=== PATIENT | female | born 1960 | race African-American/Black ===

== ENCOUNTER 2019-08-08 05:50 | Inpatient (IN) | payer OTHER ==
--- NOTE | 2019-08-07 11:59 | HP ---
HISTORY OF PRESENT ILLNESS: This is a 59 year old female, who reports to our office for evaluation of low back pain and right greater than left leg pain. The patient describes pain that radiates down along the S1 dermatome on the right and on the left, pain at the left greater trochanteric bursa down to her knee. The patient describes pain worse with standing or walking. She cannot walk further than a block without needing to sit or lean over. The patient states that she has recently noticed her legs going numb if she stands while cooking. Sitting will relieve the pain and numbness. At times, she gets pain when trying to sleep. She states that it is difficult to do all of her daily activities due to this pain. REVIEW OF SYSTEMS: A 10-point review of systems has been completed and is negative other than stated in the above HPI. PAST MEDICAL HISTORY: Anxiety, history of tumor, depression, headaches. SURGICAL HISTORY: Lumbar back surgery x2. Anal surgery for cancer. FAMILY HISTORY: Father is , diagnosed with heart disease. Mother is , diagnosed with diabetes and stroke. SOCIAL HISTORY: The patient is a nonsmoker. MEDICATIONS: Effexor, naproxen, metformin, venlafaxine, omeprazole, and trazodone. ALLERGIES: NO KNOWN DRUG ALLERGIES. PHYSICAL EXAMINATION: CONSTITUTIONAL: Well appearing, well nourished, alert. RESPIRATIONS: Normal work of breathing on room air. Symmetric chest rise. NEUROLOGIC: Awake, alert, oriented x3. Speech is spontaneous and fluent. Normal fund of knowledge. Cranial nerves are grossly intact. Lower extremities; 5/5 bilateral strength in hip flexion, knee flexion, knee extension, dorsiflexion, plantar flexion, EHL. No radiculopathy. Negative single leg raise bilaterally. Hip rotation normal bilaterally. Tender to palpate lumbar spine. Deep tendon reflexes 2+ patellar bilaterally, 2+ Achilles bilaterally. Negative Babinski. No clonus. Sensory, light touch intact. Gait and station, sit to stand normal. Normal gait. IMAGING: MRI of lumbar spine, prior surgery at L4, L5, S1. There is restenosis at L4-L5. There is listhesis at L5-S1 with motion on flexion-extension x-rays. Dr. Murray has offered surgery for neurogenic claudication and spondylolisthesis of the lumbar region. He has offered a redo-laminectomy with an L4-L5 TLIF. INFORMED CONSENT: We discussed indications, risks, benefits, alternatives, expected results from surgery. The risks discussed include but were not limited to, bleeding, infection, CSF leak, nerve damage, weakness, incontinence, cauda equina injury, arachnoiditis, paralysis, ventilator dependence, wheelchair dependence, loss of vision, cardiopulmonary complications of anesthesia, or . Long-term complications discussed include, but were not limited to spinal instability and the need for further surgery. The patient states she is willing to proceed. Job ID: [id number]
[2019-08-07 15:07] VITALS: BMI 33.6
[2019-08-08] MEDS ORDERED: Sodium Chloride 0.9% 30 ML ONE (06:12)
[2019-08-08] MEDS ORDERED: Bupivacaine HCl 0.5%/Epinephrine 1:200,000/PF 30 ml Vial ONE (06:12)
[2019-08-08] MEDS ORDERED: Thrombin 5000 UNITS/5 ML VIAL ONE (06:12)
[2019-08-08 06:26] LABS: Hemoglobin 10.8 g/dL (12.0-16.0); Mean Corpuscular HGB CONC 33.3 g/dL (32.0-36.0); Mean Corpuscular Hemoglobin 33.6 pg (27.0-31.0); Mean Platelet Volume 6.4 fL (7.4-10.4); Platelet Count 264 thou/uL (130-400); RBC Distribution Width 12.1 % (11.5-14.5); Red Blood Cell (RBC) Count 3.22 mill/uL (4.20-5.40); White Blood Cell (WBC) Count 6.3 thou/uL (4.8-10.8)
[2019-08-08 06:32] LABS: PTT 26.7 SEC (22.9-36.1); Prothrombin Time 13.3 SEC (12.0-14.7)
[2019-08-08] MEDS ORDERED: Fentanyl 250 MCG/5 ML VIAL ONE (06:37)
[2019-08-08 06:58] LABS: Anion Gap 14 mmol/L (10-20); BUN (Urea Nitrogen) 19 mg/dL (9.8-20.1); Calc. Creatinine Clearance 43 mL/min (70-130); Calcium 9.6 mg/dL (7.8-10.44); Carbon Dioxide 24 mmol/L (22-29); Chloride 105 mmol/L (98-107); Estimated GFR-MDRD 30; Glucose 91 mg/dL (70-105); Potassium 4.1 mmol/L (3.5-5.1); Sodium 139 mmol/L (136-145)
[2019-08-08] MEDS ORDERED: Ketamine 50 MG/ML (10ML VIAL) ONE (07:05)
[2019-08-08] MEDS ORDERED: Phenylephrine HCL 10 MG/ML VIAL ONE ×2 (08:06→11:31)
[2019-08-08] MEDS ORDERED: Midazolam HCl 2 mg/2 ml Vial ONE ×2 (08:12→11:32)
[2019-08-08] MEDS ORDERED: Ondansetron PF 4 MG/2 ML Vial ONE ×3 (11:33→19:27)
[2019-08-08] MEDS ORDERED: Acetaminophen 325 MG TAB PO PRN (14:21)
[2019-08-08] MEDS ORDERED: Promethazine 25 MG TAB PO PRN (14:21)
[2019-08-08] MEDS ORDERED: Mag-Al 1200 mg/1200 mg/30 ML UDCUP PO PRN (14:21)
[2019-08-08] MEDS ORDERED: Ondansetron PF 4 MG/2 ML Vial IVP PRN (14:21)
[2019-08-08] MEDS ORDERED: diphenhydrAMINE 25 MG CAP PO PRN (14:21)
[2019-08-08] MEDS ORDERED: Morphine 2 MG/ML SYRINGE SLOW IVP PRN (14:21)
[2019-08-08] MEDS ORDERED: diphenhydrAMINE 50 MG/ML VIAL IVP PRN (14:21)
[2019-08-08] MEDS ORDERED: tiZANidine HCl 4 MG TAB PO PRN (14:21)
[2019-08-08] MEDS ORDERED: Milk Of Magnesia 30 ML UDCUP PO PRN (14:21)
[2019-08-08] MEDS ORDERED: Promethazine HCl 25 MG/ML VIAL IM PRN (14:21)
[2019-08-08] MEDS ORDERED: Acetaminophen/Codeine 30-300mg Tablet PO PRN (14:21)
[2019-08-08] MEDS ORDERED: Bisacodyl 10 MG SUPP PR PRN (14:21)
[2019-08-08] MEDS ORDERED: Benztropine 1 MG TAB PO PRN (14:24)
[2019-08-08] MEDS ORDERED: Promethazine HCl 25 MG/ML VIAL SLOW IVP PRN (14:33)
[2019-08-08] MEDS ORDERED: Ondansetron HCl/PF 4 MG/2 ML Vial IVP PRN (14:33)
[2019-08-08] MEDS ORDERED: Morphine Sulfate 2 MG/ML SYRINGE SLOW IVP PRN (14:33)
[2019-08-08] MEDS ORDERED: Meperidine HCl/PF 25 MG/ML VIAL SLOW IVP PRN (14:33)
--- NOTE | 2019-08-08 14:44 | OP ---
DATE OF PROCEDURE: 08/08/2019 INSOLE TAPER: Sharyn Ybarra PA-C. PREOPERATIVE INDICATION: Treat pain and prevent neurological deterioration. PREOPERATIVE DIAGNOSES: Recurrent lumbar stenosis at L4-5 and L5-S1 and new lumbar stenosis at L3-4, all with neurogenic claudication, prior lumbar laminectomy at L4-S1, unstable spondylolisthesis at L4-5. POSTOPERATIVE DIAGNOSES: Recurrent lumbar stenosis at L4-5 and L5-S1 and new lumbar stenosis at L3-4, all with neurogenic claudication, prior lumbar laminectomy at L4-S1, unstable spondylolisthesis at L4-5. OPERATIVE PROCEDURE: Reopening lumbar incision, repeat bilateral hemilaminectomy, medial facetectomy, foraminotomy, L4-5, L5-S1 new laminectomy, medial facetectomy, foraminotomy L3-L4, L4-L5 facetectomy, transforaminal lumbar interbody arthrodesis at L4-L5, placement of intervertebral biomechanical device at L4-L5, local morselized autograft and morselized allograft, pedicle screw and patrizia instrumentation at L4-L5, posterolateral arthrodesis L4-L5, and operating microscope. PREOPERATIVE MEDICATION: Ancef 2 g IV. DRAIN NUMBER: Zero. DRAIN TYPE: None. DESCRIPTION OF PROCEDURE: The patient was brought to the operating room. General endotracheal anesthesia was induced. The patient was positioned prone on the Luis Manuel frame and a lateral fluoro radiograph was used to confirm that the previous incision would give us access from L3-S1. We marked out the previous incision. The lumbar skin was sterilely prepped and draped. We opened with a 10 blade knife and we controlled bleeding with bipolar and monopolar cautery. We used monopolar cautery to dissect through subcutaneous tissues to the thoracodorsal fascia. We incised the fascia in the midline and we reflected the paraspinal muscles and scar tissue off the spinous process and lamina of L3 and over the dura to the facet joints at L3-4, L4-5 and L5-S1. We placed a marker and took a lateral fluoro radiograph to confirm the levels upon which we were operating. We then carefully dissected out the L3-L4 and L4-[address] to the transverse processes of L4 and L5 bilaterally. Self-retaining retractor was placed. We began our decompression at L3-4. Here an Adson rongeur was used to remove the spinous process of L3. We performed laminectomy and medial facetectomy to decompress the thecal sac and the lateral recesses. We performed medial facetectomies to ensure the traversing L4 nerve roots were not compressed in the lateral recess and then foraminotomies over those nerve roots at their exit point. With decompression secured here, we turned our attention to the previous area of decompression. We brought the operating microscope in the field. Under microscopic magnification and using microsurgical techniques, we carefully generated a plane with the curettes between scar tissue and the remnant of the spinal canal. We dissected down along the pars interarticularis of L4 to the facet joint at L4-5 down the pars of L5 to the facet joint at L5-S1. With scar tissue from the bones, we then used Kerrison rongeurs to fashion a foraminotomy over the L5 and S1 nerve roots. We decompressed the lateral recesses by performing medial facetectomies. We made sure a Hernandez ball could pass out the foramina with the L3, L4, L5, and S1 nerve roots and down the lateral recesses at each of the interspaces we decompressed and then turned our attention to arthrodesis. We performed a complete facetectomy on the right at L4-L5. With the facet out of the way, we could access the intervertebral space and we incised the disk with an 11-blade knife. We removed disk contents using curettes and rongeurs and measured the height of the interspace with a rectangular bone rasp. A 12 mm PEEK intervertebral graft was brought into the field. The laminectomy bone was morselized after soft tissue was removed. The morselized bone was added to demineralized bone matrix to form a fusion substrate and that substrate was packed in the center of our intervertebral graft. The graft was advanced into the interspace under radiographic guidance to the appropriate depth. We turned our attention to pedicle screw instrumentation. We took the operative microscope out of the field. Using bony anatomic landmarks, palpation of the medial portion of the pedicles and a lateral fluoro radiograph as our guide, we chose entry points for L4 and L5 pedicles bilaterally. We drilled out our entry points and then used a bone awl to advance through the pedicles into the vertebral bodies. We tapped each trajectory with a threaded tap. We probed the trajectories with the ball probe and found them completely encased in bone. We placed 6.5 mm diameter screws at L4 and L5 bilaterally. We then irrigated copiously with bacitracin irrigation. A 360-degree image set was generated with our isocentric C-arm. This confirmed adequate positioning of our pedicle screw instrumentation. We then decorticated the transverse processes of L4 and L5 on both sides. We brought rods into the screw heads and tightened caps over the rods. We used a gentle compressive force across the interspace to keep our interbody graft in place and then used a torque/counter-torque mechanism to ensure adequate tightness of the caps to the rods. Over the decorticated transverse processes, we left demineralized bone matrix and morselized autograft as our posterior lateral fusion substrate. We irrigated the center of the wound once again. We probed the L4 foramina and widened them so the L4 nerve roots at the fused space would have more than adequate room. We treated the wound with vancomycin powder. We closed the wound in anatomical layers. We applied a sterile dressing. This was a clean case, no contamination. Job ID: [id number]
[2019-08-08] MEDS ORDERED: Fentanyl 100 MCG/2 ML VIAL ONE ×2 (14:53→16:26)
[2019-08-08] MEDS ORDERED: CEFAZOLIN 2 GM in Premix Bag 1 BAG IVPB SCH (15:00)
[2019-08-08] MEDS: Sodium Chloride 0.9% 1,000 ML IV SCH ×2 (16:59→20:22)
[2019-08-08] MEDS ORDERED: Ketorolac Tromethamine 30 MG/ML VIAL ONE (19:27)
[2019-08-08] MEDS ORDERED: Rocuronium Bromide 10 MG/ML (10ML VIAL) ONE (19:27)
[2019-08-08] MEDS ORDERED: PROPOFOL 200 MG/20 ML VIAL ONE (19:27)
[2019-08-08] MEDS ORDERED: Lidocaine 1% PF 5 ML VIAL ONE (19:27)
[2019-08-08] MEDS ORDERED: diphenhydrAMINE 50 MG/ML VIAL ONE (19:27)
[2019-08-08] MEDS ORDERED: Glycopyrrolate 0.2 MG/ML 5 ML SYRINGE ONE (19:27)
[2019-08-08] MEDS ORDERED: PHENYLEPHRINE-NS 100 MCG/ML 10 ML SYRINGE ONE (19:27)
[2019-08-08] MEDS ORDERED: ePHEDrine 50 MG/ML VIAL ONE (19:27)
[2019-08-08] MEDS: CEFAZOLIN 2 GM in Premix Bag 1 BAG IVPB SCH (20:03)
[2019-08-08] MEDS: Zolpidem Tartrate 5 MG TAB PO SCH (20:03)
[2019-08-08] MEDS: Morphine 4 MG/ML VIAL SLOW IVP PRN (20:04)
[2019-08-08] MEDS: traZODone HCl 150 MG TAB PO SCH (21:41)
[2019-08-09] MEDS: CEFAZOLIN 2 GM in Premix Bag 1 BAG IVPB SCH (02:47)
[2019-08-09] MEDS: Acetaminophen/Codeine 30-300mg Tablet PO PRN ×3 (02:47→10:53)
--- NOTE | 2019-08-09 07:13 | PRG ---
DATE OF SERVICE: 08/09/2019 I saw Ms. Herndon this morning. She is 1 day out from a redo laminectomy and an L4-5 TLIF for recurrent stenosis and instability. Ms. Herndon has a sore back and some numbness in the anterior thighs. Overnight, I do not see any fevers recorded. Her blood pressures have been in the 90s to 100s and other vital signs are stable. There is no new neurological deficit in the lower extremities. I reassured Ms. Herndon that her muscle spasm pain will get better with increased mobilization. Her meralgia paresthetica numbness from positioning on the operating table would likewise improve slowly over time. She may be a good candidate for inpatient rehabilitation as it was difficult for her to get to the bathroom yesterday. She seems motivated today to mobilize. She should not wear the brace in bed, but should wear it when she is sitting and standing. Job ID: [id number]
[2019-08-09] MEDS ORDERED: metFORMIN 500 MG TAB PO SCH (08:00)
[2019-08-09] MEDS ORDERED: traMADol HCl 50 MG TAB PO PRN (08:14)
[2019-08-09] MEDS: Venlafaxine HCl XR 150 MG CAP PO SCH (08:25)
[2019-08-09] MEDS: Atorvastatin Calcium 40 MG TAB PO SCH (08:25)
[2019-08-09] MEDS: traMADol HCl 50 MG TAB PO PRN (08:26)
[2019-08-09] MEDS ORDERED: HumaLOG 300 UNITS/3 ML VIAL SC PRN ×2 (14:18)
[2019-08-09] MEDS ORDERED: Dextrose 50% Abboject 50 ML SYRINGE SLOW IVP PRN (14:18)
[2019-08-09] MEDS ORDERED: Dextrose 5% in Water 1,000 ML IV PRN (14:18)
[2019-08-09] MEDS ORDERED: Acetaminophen 650 MG Suppository PR PRN (14:19)
[2019-08-09] MEDS ORDERED: Sodium Chloride 0.9% 250 ML IV SCH (14:30)
[2019-08-09] MEDS ORDERED: Sodium Chloride 0.9% 500 ML IV SCH (14:30)
[2019-08-09] MEDS: Sodium Chloride 0.9% 1,000 ML IV SCH (14:47)
[2019-08-09 14:49] LABS: #Eosinphils 0.1 thou/uL (0.0-0.7); #Lymphocytes 1.9 thou/uL (1.20-3.40); #Monocytes 0.4 thou/uL (0.11-0.59); #Neutrophils 3.8 thou/uL (1.40-6.50); %Basophils 0.6 % (0.0-1.0); %Eosinophils 1.2 % (0.0-10.0); %Lymphocytes 30.5 % (21.0-51.0); %Monocytes 6.5 % (0.0-10.0); %Neutrophils 61.3 % (42.0-75.0); Hemoglobin 7.1 g/dL (12.0-16.0); Mean Corpuscular HGB CONC 33.4 g/dL (32.0-36.0); Mean Platelet Volume 6.8 fL (7.4-10.4); Platelet Count 178 thou/uL (130-400); Red Blood Cell (RBC) Count 2.08 mill/uL (4.20-5.40); White Blood Cell (WBC) Count 6.2 thou/uL (4.8-10.8)
--- NOTE | 2019-08-09 15:28 | CON ---
DATE OF CONSULTATION: REASON FOR CONSULTATION: Medical management. REFERRING PHYSICIAN: Dr. Valerio CHIEF COMPLAINT: Indigestion. HISTORY OF PRESENT ILLNESS: Ms. Herndon is a pleasant 59-year-old woman with known diabetes mellitus, schizoaffective disorder, obesity, and GERD. She is status post a redo lumbar spine laminectomy. She has been referred for medical management. The patient states that she is doing well in regard to pain and has some numbness in the bilateral thighs which she states Dr. Murray told her was normal. She complains of some reflux and indigestion due to lying on her left side while eating. She has been started on a PPI. She otherwise is without any complaints. Denies having any nausea or vomiting. No cough. No chest pain, palpitations, or shortness of breath. No headaches or dizziness. Denies any urinary symptoms. Overall, she is doing well without complaints. The patient is requesting that she not be given any muscle relaxants as this was causing her to be drowsy and affecting her gait at home. The patient states she was previously thought to have had some problem with her heart and states she underwent a heart catheterization which was normal. She states this was several years ago and she was put on "water tablets," but she stopped them due to frequent urination. REVIEW OF SYSTEMS: All other review of systems negative. PAST MEDICAL HISTORY: 1. Schizoaffective disorder. 2. Diabetes mellitus. 3. Hyperlipidemia. 4. Anxiety. 5. Depression. 6. History of anal cancer. 7. Headaches. 8. Obesity. PAST SURGICAL HISTORY: 1. Lumbar back surgery x2. 2. Surgery for anal cancer. 3. Cholecystectomy. 4. x2. 5. Heart catheterization, normal per the patient. SOCIAL HISTORY: The patient lives at home with her . She is fully independent. Denies any smoking, alcohol consumption, or illicit drug use. FAMILY HISTORY: Her father is , diagnosed with heart disease. Mother , diagnosed with diabetes and stroke. ALLERGIES: NO KNOWN DRUG ALLERGIES. CURRENT MEDICATIONS: 1. Atorvastatin. 2. Benztropine. 3. Hydrocodone. 4. Metformin. 5. Naproxen. 6. Omeprazole. 7. Polyethylene glycol. 8. Quetiapine fumarate. 9. Trazodone. 10. Venlafaxine. 11. Zolpidem tartrate. PHYSICAL EXAMINATION: GENERAL: The patient appears well developed, well nourished, in no acute distress. VITAL SIGNS: Temperature 99.1, pulse 73, respirations 16, O2 saturation 94% on room air, blood pressure 100/60, however, more recently, this was repeated and was 87 /52. HEENT: Normocephalic and atraumatic. Pupils are equal, round, and reactive to light. Sclerae without icterus. Oropharynx is clear. NECK: Supple. LUNGS: Clear to auscultation bilaterally without wheezes, rales, or rhonchi. CARDIAC: Regular rate and rhythm. ABDOMEN: Obese, soft, nontender, nondistended. Normoactive bowel sounds present. No guarding or rigidity. EXTREMITIES: No lower leg swelling or edema. Sensation intact in both feet with pedal pulses strong and equal bilaterally. She does have reduced sensation involving the bilateral thighs. NEUROLOGIC: Alert and oriented x3. SKIN: Warm and dry. LABORATORY DATA: Laboratory data done on 08/08/2019, white blood count 6.3, hemoglobin 10.8, hematocrit 32.6, platelets 264. Sodium 139, potassium 4.1, anion gap 14, BUN 19, creatinine 2.09, GFR 30, glucose 91, calcium 9.6. No previous renal function to compare to. IMAGING DATA: None. IMPRESSION AND PLAN: Ms. Herndon is a pleasant 59-year-old woman, who has been referred for medical management. We will address the followin. Acute kidney injury. The patient with a creatinine of 2.09 yesterday. No previous to compare to. GFR is 30. IV fluids were written, but apparently her IV access came out yesterday and IV access has not been reestablished. Nurse will assist with obtaining IV access now. Bolus NS 250 mL and then we will give normal saline at 100 mL/h. The patient did report being on a water tablet in the past. We will check BNP today as well as with morning labs tomorrow and monitor for any signs of fluid overload. 2. Hypotension. Possibly combination of pain medications and dehydration. Again, bolus to be given and IV fluids. We will monitor blood pressure. Currently, the patient is asymptomatic. Hemoglobin yesterday was low at 10.8. We will recheck today to ensure it has not dropped. No evidence of any concerns for bleeding. 3. Diabetes mellitus. The patient has been started on metformin, however, given current renal function, we will discontinue this and cover with an insulin sliding scale. Monitor blood glucose. 4. Hyperlipidemia. Continue atorvastatin. 5. Gastroesophageal reflux disease. Continue Protonix. 6. Pain. Currently well controlled. Zanaflex has been discontinued per the patient's request. 7. Deep venous thrombosis prophylaxis. Mechanical SCDs. 8. Code status full. The patient's surrogate decision maker is her , Vickey Herndon. Thank you for this consultation. We will continue to follow the patient with you. Case will be discussed with attending for further recommendations. Job ID: [id number] MTDD
[2019-08-09 15:40] LABS: Anion Gap 9 mmol/L (10-20); BUN (Urea Nitrogen) 13 mg/dL (9.8-20.1); Calc. Creatinine Clearance 92 mL/min (70-130); Calcium 8.1 mg/dL (7.8-10.44); Carbon Dioxide 25 mmol/L (22-29); Chloride 111 mmol/L (98-107); Estimated GFR-MDRD 71; Glucose 108 mg/dL (70-105); Potassium 4.4 mmol/L (3.5-5.1); Sodium 141 mmol/L (136-145)
[2019-08-09] MEDS: Zolpidem Tartrate 5 MG TAB PO SCH (20:39)
[2019-08-09] MEDS: traZODone HCl 150 MG TAB PO SCH (20:39)
--- NOTE | 2019-08-09 21:58 | PDOC.EVN ---
Event Note - Event Note Event Note: Notified by RN, patient had a fall when stepping back towards bedside commode. Mechanical fall. Her BP is low 90s systolic. Repeat labs today showed improved renal function. H/H however is low at 7 (10 yesterday). This was checked a noon. Will check stat H/H, and I have requested 1 unit PRBCs to be given. RN advised to notify surgical team of fall and above given recent spine surgery. No head injury or LOC.
[2019-08-09 22:33] LABS: Hemoglobin 7.1 g/dL (12.0-16.0)
[2019-08-10] MEDS: Acetaminophen/Codeine 30-300mg Tablet PO PRN ×4 (00:55→16:29)
[2019-08-10] MEDS: Sodium Chloride 0.9% 1,000 ML IV SCH ×3 (01:04→12:46)
[2019-08-10] MEDS: Morphine 4 MG/ML VIAL SLOW IVP PRN ×2 (02:22→05:15)
[2019-08-10 05:37] LABS: Anion Gap 12 mmol/L (10-20); BUN (Urea Nitrogen) 10 mg/dL (9.8-20.1); Calc. Creatinine Clearance 94 mL/min (70-130); Calcium 8.5 mg/dL (7.8-10.44); Carbon Dioxide 24 mmol/L (22-29); Chloride 109 mmol/L (98-107); Estimated GFR-MDRD 72; Glucose 113 mg/dL (70-105); Potassium 4.5 mmol/L (3.5-5.1); Sodium 140 mmol/L (136-145)
[2019-08-10 05:43] LABS: #Eosinphils 0.1 thou/uL (0.0-0.7); #Lymphocytes 1.7 thou/uL (1.20-3.40); #Monocytes 0.4 thou/uL (0.11-0.59); %Eosinophils 1.8 % (0.0-10.0); %Lymphocytes 23.1 % (21.0-51.0); %Neutrophils 69.1 % (42.0-75.0); Hemoglobin 8.4 g/dL (12.0-16.0); Mean Corpuscular HGB CONC 32.7 g/dL (32.0-36.0); Mean Corpuscular Hemoglobin 31.6 pg (27.0-31.0); Mean Corpuscular Volume 96.9 fL (78.0-98.0); Mean Platelet Volume 7.4 fL (7.4-10.4); Platelet Count 172 thou/uL (130-400); Red Blood Cell (RBC) Count 2.65 mill/uL (4.20-5.40); White Blood Cell (WBC) Count 7.2 thou/uL (4.8-10.8)
--- NOTE | 2019-08-10 07:08 | PRG ---
DATE OF SERVICE: 08/10/2019 I saw Ms. Herndon in our hospital room this morning. She reports a fall in the early hours of the morning when she attempts to get out of bed and use the bathroom. She tells me that the muscle relaxant made her legs feel wobbly and she went down, landed on her ischial tuberosities. I do not see that an x-ray action was ordered. Her neurological function is good this morning. Overnight, the highest temperature recorded was 100.6 degrees Fahrenheit. Blood pressures have been in the 100s to 120s. There is good strength in the iliopsoas, the quadriceps, the hamstrings, the anterior tib, the EHL, and the gastrocs. There is some meralgia paresthetica numbness on the anterior portion of both thighs from positioning on the operating table, although that is improved. I will order an x-ray of the lumbar spine. Blood transfusion has been ordered for hemoglobin of 8.4. The plan today is to mobilize with physical therapy. We will make sure the instrumentation is not dislodged. I will start the process of having her approved for inpatient rehabilitation from which she would benefit greatly. Job ID: [id number] MTDD
[2019-08-10] MEDS: Atorvastatin Calcium 40 MG TAB PO SCH (07:39)
[2019-08-10] MEDS: Venlafaxine HCl XR 150 MG CAP PO SCH (07:40)
--- NOTE | 2019-08-10 09:23 | RAD ---
LUMBAR SPINE 3 VIEWS: Date: 08/10/19 HISTORY: Fall with injury to back. FINDINGS: There are postoperative changes. Pedicle screws transfix L4-5 and there is interbody disc implant at L4-5. Slight anterolisthesis at L4-5 is noted. The other lumbar disc spaces are preserved. Mild degen erative spurring is seen and mild facet hypertrophy is noted. Laminectomy changes are present at L4-5 . No compression deformity or evidence of acute fracture. IMPRESSION: There are postoperative and degenerative changes of the lumbar spine as described. No evidence of acu te abnormality. POS: [facility]
--- NOTE | 2019-08-10 09:32 | CT ---
CT Lumbar Spine WO Con History: Fall. Recent back surgery. Comparison: Radiograph same day Findings: The aortic contour is nonaneurysmal. No retroperitoneal periaortic adenopathy. There is gas and hemorrhage within the right psoas muscle, postoperative in nature. There is a postop erative seroma lower lumbar spine. Epidural gas along the lower thoracic spinal canal as well as of the lumbar spinal canal, postoperati ve in nature. Posterior spinal fusion hardware L3 L4-L5 with interconnecting rods and discectomy cage. 3 mm L4 over L5 anterolisthesis. Epidural seroma causes mild mass effect upon the spinal canal. Spinal canal also narrowed at the level of superior endplate of L5 with appears to be bone graft the canal measuri ng approximately 6 mm axial image 72. Severe facet arthrosis L5/S1. L4/L5 facetectomies. Laminectomy changes L3-L5. Left subforaminal disc osteophyte complex causes moderate left-sided neural foraminal narrowing. Broa d-based posterior disc bulge at L5/S1 causes moderate neural foraminal narrowing. Impression: Postoperative and degenerative findings as described. No acute fracture of the lumbar spi ne.
[2019-08-10] MEDS: traMADol HCl 50 MG TAB PO PRN ×3 (09:55→18:38)
[2019-08-10] MEDS ORDERED: Polyethylene Glycol 3350 17 GM Packet PO PRN (18:34)
[2019-08-10] MEDS: Zolpidem Tartrate 5 MG TAB PO SCH (20:32)
[2019-08-10] MEDS: traZODone HCl 150 MG TAB PO SCH (20:32)
[2019-08-10] MEDS: Senokot S 8.6-50 MG TAB PO SCH (20:32)
[2019-08-11] MEDS: Acetaminophen/Codeine 30-300mg Tablet PO PRN ×5 (07:16→23:35)
--- NOTE | 2019-08-11 07:35 | PRG ---
DATE OF SERVICE: 08/11/2019 Ms. Herndon is now 3 days out from decompression and fusion of the lumbar spine. Yesterday's images did not show any disruption of the instrumentation with her fall the previous evening. With physical therapy, she got out of bed yesterday and took some steps toward the hallway. She did not make it out of her room yet. It is likely for this reason that inpatient rehabilitation thought she would be a poor candidate and would not be ready for rehab quite yet Her vital signs were reasonably stable and her neurological examination as well. Ms. Herndon needs placement. She can transfer to a swing bed or nursing facility where she can get some aggressive rehabilitation. I think that will be worthwhile. If she stays with us over the weekend, we will ask our colleagues in physical therapy to get her out in the hallways and increase her chances of being accepted to inpatient rehabilitation by early next week. Job ID: [id number] MTDD
[2019-08-11] MEDS: traMADol HCl 50 MG TAB PO PRN ×3 (08:02→23:35)
[2019-08-11] MEDS: Senokot S 8.6-50 MG TAB PO SCH ×2 (08:03→20:45)
[2019-08-11] MEDS: Venlafaxine HCl XR 150 MG CAP PO SCH (08:03)
[2019-08-11] MEDS: Atorvastatin Calcium 40 MG TAB PO SCH (08:03)
--- NOTE | 2019-08-11 10:23 | PDOC.HOSPP ---
- Subjective Encounter Date: 08/10/19 Encounter Time: 18:20 Subjective: Patient seen and examined for med mngt. No CP or SOB. Pain controlled. No new complaints. Overnight events noted. - Objective Vital Signs & Weight: Vital Signs (12 hours) Temp Pulse Resp BP Pulse Ox 08/11/19 07:32 98.9 F 86 18 116/72 93 L 08/11/19 03:19 99.2 F 87 18 127/81 97 08/10/19 23:20 99.1 F 81 18 116/71 95 Weight Weight 202 lb I&O: 08/10/19 08/11/19 08/12/19 06:59 06:59 06:59 Intake Total 3240 0 Balance 3240 2069 Result Diagrams: 08/10/19 04:13 08/10/19 04:13 Additional Labs: Accuchecks 08/11/19 08/10/19 08/10/19 05:23 21:58 16:50 POC Glucose 112 H 126 H 162 H 08/10/19 10:36 POC Glucose 112 H Hospitalist ROS - Review of Systems Respiratory: denies: cough, dry, shortness of breath, hemoptysis, SOB with excertion, pleuritic pain, sputum, wheezing, other Cardiovascular: denies: chest pain, palpitations, orthopnea, paroxysmal noc. dyspnea, edema, light headedness, other - Medication Medications: Active Medications Generic Name Dose Route Start Last Admin Trade Name Freq PRN Reason Stop Dose Admin Acetaminophen/Codeine Phosphate 2 tab 08/08/19 14:21 08/11/19 07:16 Tylenol #3 PO 2 tab Q3H PRN Administration Moderate Pain (4-6) Atorvastatin Calcium 40 mg 08/09/19 09:00 08/11/19 08:03 Lipitor PO 40 mg QAM AAMIR Administration Insulin Human Lispro 0 units 08/09/19 14:18 08/10/19 17:29 Humalog SC 2 unit .MILD SLIDING SCALE PRN Administration Mild Correctional Scale Morphine Sulfate 4 mg 08/08/19 14:21 08/10/19 05:15 Morphine SLOW IVP 4 mg Q1H PRN Administration Severe Breakthrough Pain Pantoprazole Sodium 40 mg 08/09/19 09:00 08/11/19 08:03 Protonix PO 40 mg DAILY AAMIR Administration Quetiapine Fumarate 400 mg 08/08/19 21:00 08/10/19 20:33 Seroquel PO 400 mg HS AAMIR Administration Senna/Docusate Sodium 2 tab 08/10/19 21:00 08/11/19 08:03 Senokot S PO 2 tab BID AAMIR Administration Tramadol HCl 100 mg 08/09/19 08:14 08/11/19 08:02 Ultram PO 100 mg Q4H PRN Administration Severe Pain Trazodone HCl 150 mg 08/08/19 21:00 08/10/19 20:32 Desyrel PO 150 mg HS AAMIR Administration Venlafaxine HCl 150 mg 08/09/19 09:00 08/11/19 08:03 Effexor Xr PO 150 mg QAM AAMIR Administration Zolpidem Tartrate 5 mg 08/08/19 21:00 08/10/19 20:32 Ambien PO 5 mg HS AAMIR Administration - Exam General Appearance: NAD Neck: supple, no JVD Heart: RRR, no gallops Respiratory: CTAB, no rales Gastrointestinal: soft, non-tender, normal bowel sounds Extremities: no edema Hosp A/P (1) CAL (acute kidney injury) Code(s): N17.9 - ACUTE KIDNEY FAILURE, UNSPECIFIED Status: Acute (2) Hypotension Status: Acute (3) DM2 (diabetes mellitus, type 2) Status: Chronic Qualifiers: Chronic kidney disease stage: stage 2 (mild) (4) Obesity (BMI 30.0-34.9) Code(s): E66.9 - OBESITY, UNSPECIFIED Status: Chronic (5) HLD (hyperlipidemia) Code(s): E78.5 - HYPERLIPIDEMIA, UNSPECIFIED Status: Chronic - Plan DVT proph w/SCDs Restart Metformin in AM Cont Statins DC IVF Cont sliding scale Cont PT/OT Cont other meds Will follow PRN
--- NOTE | 2019-08-11 12:42 | PQF ---
SCOTT ALCANTARA MALIK MD [id number] SURG A- [id number] CLINICAL DOCUMENTATION IMPROVEMENT CLARIFICATION FORM: ICD-10 Updated PLEASE DO AN ADDENDUM TO THE PROGRESS NOTE WITH ANY DOCUMENTATION UPDATES OR ADDITIONS AND CARRY THROUGH TO DC SUMMARY. THANK YOU. DATE: 08/11/2019 ATTN:DR.M LEUNG Please exercise your independent, professional judgment in responding to the clarification form. Clinical indicators are provided on the bottom of this form for your review. Please check appropriate box(s): [ ] Acute blood loss anemia [ ] Post-op anemia related to acute blood loss [ ] Other diagnosis [ x ] Unable to determine I In addition, please specify: Present on Admission (POA): [ ] Yes [ ] No [ ] Unable to determine For continuity of documentation, please document condition throughout progress notes and discharge summary. Thank You. CLINICAL INDICATORS - SIGNS / SYMPTOMS / LABS / RESULTS AND LOCATION IN EMR 08/08 HEMOGLOBIN 10.8 08/09 HEMOGLOBIN 7.1 > 7.1 08/10 HEMOGLOBIN 8.4 08/10 PN ([facility]) BLOOD TRANSFUSION HAS BEEN ORDERED FOR HEMOGLOBIN OF 8.4 08/10LUMBAR SPINE CT- THERE IS GAS AND HEMORRHAGE WITH IN THE RIGHT PSOAS MUSCLE , POSTOPERATIVE IN NATURE. THERE IS A POSTOPERATIVE SEROMA LOWER LUMBAR SPINE. RISK: SURGERY (08/08/[facility]) TREATMENTS: PRBC TRANSFUSION 08/10 SERIAL LABS 08/08-08/10 THANK YOU! WILIAN (This form is maintained as a part of the permanent medical record) 2014 [employer]. All Rights Reserved [email or web address] [phone] [email or web address]
[2019-08-11] MEDS: traZODone HCl 150 MG TAB PO SCH (20:45)
[2019-08-11] MEDS: Zolpidem Tartrate 5 MG TAB PO SCH (20:45)
--- NOTE | 2019-08-11 23:04 | PDOC.HOSPP ---
- Subjective Encounter Date: 08/11/19 Encounter Time: 18:30 Subjective: Patient seen and examined for med mngt. Pain controlled. Ambulated with PT earlier. No new complaints. No overnight events - Objective Vital Signs & Weight: Vital Signs (12 hours) Temp Pulse Resp BP Pulse Ox 08/11/19 20:19 98.9 F 80 18 137/86 95 08/11/19 14:58 99.7 F H 87 18 156/78 H 87 L Weight Weight 202 lb I&O: 08/10/19 08/11/19 08/12/19 06:59 06:59 06:59 Intake Total 3240 2070 1440 Output Total 600 Balance 3240 2070 840 Result Diagrams: 08/10/19 04:13 08/10/19 04:13 Additional Labs: Accuchecks 08/11/19 08/11/19 08/11/19 20:28 15:54 10:53 POC Glucose 132 H 135 H 134 H 08/11/19 05:23 POC Glucose 112 H Hospitalist ROS - Review of Systems Respiratory: denies: cough, dry, shortness of breath, hemoptysis, SOB with excertion, pleuritic pain, sputum, wheezing, other Cardiovascular: denies: chest pain, palpitations, orthopnea, paroxysmal noc. dyspnea, edema, light headedness, other - Medication Medications: Active Medications Generic Name Dose Route Start Last Admin Trade Name Freq PRN Reason Stop Dose Admin Acetaminophen/Codeine Phosphate 2 tab 08/08/19 14:21 08/11/19 20:43 Tylenol #3 PO 2 tab Q3H PRN Administration Moderate Pain (4-6) Atorvastatin Calcium 40 mg 08/09/19 09:00 08/11/19 08:03 Lipitor PO 40 mg QAM AAMIR Administration Insulin Human Lispro 0 units 08/09/19 14:18 08/10/19 17:29 Humalog SC 2 unit .MILD SLIDING SCALE PRN Administration Mild Correctional Scale Morphine Sulfate 4 mg 08/08/19 14:21 08/10/19 05:15 Morphine SLOW IVP 4 mg Q1H PRN Administration Severe Breakthrough Pain Pantoprazole Sodium 40 mg 08/09/19 09:00 08/11/19 08:03 Protonix PO 40 mg DAILY AAMIR Administration Quetiapine Fumarate 400 mg 08/08/19 21:00 08/11/19 20:45 Seroquel PO 400 mg HS AAMIR Administration Senna/Docusate Sodium 2 tab 08/10/19 21:00 08/11/19 20:45 Senokot S PO 2 tab BID AAMIR Administration Tramadol HCl 100 mg 08/09/19 08:14 08/11/19 18:21 Ultram PO 100 mg Q4H PRN Administration Severe Pain Trazodone HCl 150 mg 08/08/19 21:00 08/11/19 20:45 Desyrel PO 150 mg HS AAMIR Administration Venlafaxine HCl 150 mg 08/09/19 09:00 08/11/19 08:03 Effexor Xr PO 150 mg QAM AAMIR Administration Zolpidem Tartrate 5 mg 08/08/19 21:00 08/11/19 20:45 Ambien PO 5 mg HS AAMIR Administration - Exam General Appearance: NAD Neck: supple, no JVD Heart: RRR, no gallops Respiratory: CTAB, no rales Gastrointestinal: soft, non-tender, normal bowel sounds Extremities: no edema Hosp A/P (1) CAL (acute kidney injury) Code(s): N17.9 - ACUTE KIDNEY FAILURE, UNSPECIFIED Status: Acute (2) Hypotension Status: Acute (3) DM2 (diabetes mellitus, type 2) Status: Chronic Qualifiers: Chronic kidney disease stage: stage 2 (mild) (4) Obesity (BMI 30.0-34.9) Code(s): E66.9 - OBESITY, UNSPECIFIED Status: Chronic (5) HLD (hyperlipidemia) Code(s): E78.5 - HYPERLIPIDEMIA, UNSPECIFIED Status: Chronic - Plan PT/OT, DVT proph w/SCDs Await Placement Cont Metformin/Statins Cont sliding scale Cont other meds Will follow PRN
[2019-08-12] MEDS: Acetaminophen/Codeine 30-300mg Tablet PO PRN ×4 (06:32→21:29)
[2019-08-12] MEDS: Senokot S 8.6-50 MG TAB PO SCH ×2 (08:01→21:30)
[2019-08-12] MEDS: Atorvastatin Calcium 40 MG TAB PO SCH (08:01)
[2019-08-12] MEDS: metFORMIN 500 MG TAB PO SCH (08:01)
[2019-08-12] MEDS: traMADol HCl 50 MG TAB PO PRN ×2 (08:01→18:28)
[2019-08-12] MEDS: Venlafaxine HCl XR 150 MG CAP PO SCH (08:02)
--- NOTE | 2019-08-12 10:58 | PRG ---
DATE OF SERVICE: 08/12/2019 SUBJECTIVE: Ms. Herndon is postop day #4 following lumbar laminectomy with Dr. Murray. Her back pain has reduced from the last few days. She does have some radicular left and right hip pains, particularly when up and ambulating, but does have a walker and is doing well with this. She ambulated to the nursing station back this morning with only mild discomfort. We are awaiting placement in either a swing bed or rehab facility. This appears to likely happen at the beginning part of the week, so she will be with us this weekend. We will push ambulation today and work on a little bit better pain control. Otherwise, the patient is doing quite well. Job ID: [id number]
--- NOTE | 2019-08-12 16:47 | PDOC.HOSPP ---
- Subjective Encounter Date: 08/12/19 Encounter Time: 11:00 Subjective: Pt seen for followup re: DM2. No new complaints. - Objective Vital Signs & Weight: Vital Signs (12 hours) Temp Pulse Resp BP Pulse Ox 08/12/19 15:53 97.9 F 84 12 08/12/19 11:19 98.8 F 75 12 95/61 95 08/12/19 07:50 98.5 F 75 18 123/64 96 Weight Weight 202 lb I&O: 08/11/19 08/12/19 08/13/19 06:59 06:59 05:59 Intake Total 2070 1440 Output Total 600 Balance 2070 840 Result Diagrams: 08/10/19 04:13 08/10/19 04:13 Additional Labs: Accuchecks 08/12/19 08/12/19 08/12/19 11:18 05:21 00:22 POC Glucose 116 H 135 H 130 H 08/11/19 08/11/19 20:28 15:54 POC Glucose 132 H 135 H Labs and MARs reviewed by ne Hospitalist ROS - Review of Systems Cardiovascular: denies: chest pain, palpitations, orthopnea, paroxysmal noc. dyspnea, edema, light headedness Gastrointestinal: denies: nausea, vomiting, abdominal pain, diarrhea, constipation, melena, hematochezia - Medication Medications: Active Medications Generic Name Dose Route Start Last Admin Trade Name Freq PRN Reason Stop Dose Admin Acetaminophen/Codeine Phosphate 2 tab 08/08/19 14:21 08/12/19 14:42 Tylenol #3 PO 2 tab Q3H PRN Administration Moderate Pain (4-6) Atorvastatin Calcium 40 mg 08/09/19 09:00 08/12/19 08:01 Lipitor PO 40 mg QAM AAMIR Administration Insulin Human Lispro 0 units 08/09/19 14:18 08/10/19 17:29 Humalog SC 2 unit .MILD SLIDING SCALE PRN Administration Mild Correctional Scale Metformin HCl 500 mg 08/12/19 08:00 08/12/19 08:01 Glucophage PO 500 mg QAM-WM AAMIR Administration Morphine Sulfate 4 mg 08/08/19 14:21 08/10/19 05:15 Morphine SLOW IVP 4 mg Q1H PRN Administration Severe Breakthrough Pain Pantoprazole Sodium 40 mg 08/09/19 09:00 08/12/19 08:01 Protonix PO 40 mg DAILY AAMIR Administration Quetiapine Fumarate 400 mg 08/08/19 21:00 08/11/19 20:45 Seroquel PO 400 mg HS AAMIR Administration Senna/Docusate Sodium 2 tab 08/10/19 21:00 08/12/19 08:01 Senokot S PO 2 tab BID AAMIR Administration Tramadol HCl 100 mg 08/09/19 08:14 08/12/19 08:01 Ultram PO 100 mg Q4H PRN Administration Severe Pain Trazodone HCl 150 mg 08/08/19 21:00 08/11/19 20:45 Desyrel PO 150 mg HS AAMIR Administration Venlafaxine HCl 150 mg 08/09/19 09:00 08/12/19 08:02 Effexor Xr PO 150 mg QAM AAMIR Administration Zolpidem Tartrate 5 mg 08/08/19 21:00 08/11/19 20:45 Ambien PO 5 mg HS AAMIR Administration - Exam General - other findings: Obese Eye: anicteric sclera ENT: moist mucosa Neck: supple Heart: RRR Respiratory: CTAB Gastrointestinal: soft, non-tender Psychiatric: normal affect, normal behavior Hosp A/P (1) DM2 (diabetes mellitus, type 2) Status: Chronic Qualifiers: Chronic kidney disease stage: stage 2 (mild) (2) HLD (hyperlipidemia) Code(s): E78.5 - HYPERLIPIDEMIA, UNSPECIFIED Status: Chronic (3) Obesity (BMI 30.0-34.9) Code(s): E66.9 - OBESITY, UNSPECIFIED Status: Chronic - Plan PT/OT, out of bed/ambulate Reasonable control of blood sugars, continue accuchecks and insulin sliding scale. Continue statin.
[2019-08-12] MEDS: traZODone HCl 150 MG TAB PO SCH (21:30)
[2019-08-12] MEDS: Zolpidem Tartrate 5 MG TAB PO SCH (21:31)
[2019-08-13] MEDS: Acetaminophen/Codeine 30-300mg Tablet PO PRN ×3 (01:55→19:33)
[2019-08-13] MEDS: traMADol HCl 50 MG TAB PO PRN (01:56)
--- NOTE | 2019-08-13 07:20 | PRG ---
DATE OF SERVICE: 08/13/2019 Ms. Herndon continues to recover from her spine surgery. She reports a little bit of hip pain on the right and some thigh numbness on the left. Overall, she feels like these have improved and that she is also improving. She has been mobilizing with a walker in the hallway. She has very reasonable pain control at this point in time. We await final disposition towards inpatient rehab. She can be discharged once that has been determined. Job ID: [id number]
[2019-08-13] MEDS: metFORMIN 500 MG TAB PO SCH (09:22)
[2019-08-13] MEDS: Senokot S 8.6-50 MG TAB PO SCH ×2 (09:22→21:25)
[2019-08-13] MEDS: Atorvastatin Calcium 40 MG TAB PO SCH (09:22)
[2019-08-13] MEDS: Venlafaxine HCl XR 150 MG CAP PO SCH (09:22)
--- NOTE | 2019-08-13 16:34 | PDOC.HOSPP ---
- Subjective Encounter Date: 08/13/19 Encounter Time: 08:20 Subjective: Pt seen for followup re: DM2. Denies chest pain or shortness of breath. - Objective Vital Signs & Weight: Vital Signs (12 hours) Temp Pulse Resp BP Pulse Ox 08/13/19 16:00 99.0 F 79 14 111/72 96 08/13/19 11:31 99.1 F 72 14 98/57 L 95 08/13/19 08:00 98.5 F 84 14 93/60 94 L Weight Weight 202 lb I&O: 08/12/19 08/13/19 08/14/19 07:59 06:59 06:59 Intake Total Output Total Balance Result Diagrams: 08/10/19 04:13 08/10/19 04:13 Additional Labs: Accuchecks 08/13/19 08/13/19 08/12/19 11:31 05:54 23:23 POC Glucose 115 H 107 158 H 08/12/19 21:02 POC Glucose 183 H Labs and MARs reviewed by nv Hospitalist ROS - Review of Systems Cardiovascular: denies: chest pain, palpitations, orthopnea, paroxysmal noc. dyspnea, edema, light headedness Gastrointestinal: denies: nausea, vomiting, abdominal pain, diarrhea, constipation, melena, hematochezia - Medication Medications: Active Medications Generic Name Dose Route Start Last Admin Trade Name Freq PRN Reason Stop Dose Admin Acetaminophen/Codeine Phosphate 2 tab 08/08/19 14:21 08/13/19 11:50 Tylenol #3 PO 2 tab Q3H PRN Administration Moderate Pain (4-6) Atorvastatin Calcium 40 mg 08/09/19 09:00 08/13/19 09:22 Lipitor PO 40 mg QAM AAMIR Administration Insulin Human Lispro 0 units 08/09/19 14:18 08/10/19 17:29 Humalog SC 2 unit .MILD SLIDING SCALE PRN Administration Mild Correctional Scale Magnesium Hydroxide 30 ml 08/08/19 14:21 08/13/19 09:22 Milk Of Magnesium PO 30 ml Q12H PRN Administration Constipation Metformin HCl 500 mg 08/12/19 08:00 08/13/19 09:22 Glucophage PO 500 mg QAM-WM AAMIR Administration Morphine Sulfate 4 mg 08/08/19 14:21 08/10/19 05:15 Morphine SLOW IVP 4 mg Q1H PRN Administration Severe Breakthrough Pain Pantoprazole Sodium 40 mg 08/09/19 09:00 08/13/19 09:22 Protonix PO 40 mg DAILY AAMIR Administration Polyethylene Glycol 17 gm 08/10/19 18:34 08/12/19 21:38 Miralax PO 17 gm DAILY PRN Administration Constipation Quetiapine Fumarate 400 mg 08/08/19 21:00 08/12/19 21:31 Seroquel PO 400 mg HS AAMIR Administration Senna/Docusate Sodium 2 tab 08/10/19 21:00 08/13/19 09:22 Senokot S PO 2 tab BID AAMIR Administration Tramadol HCl 100 mg 08/09/19 08:14 08/13/19 01:56 CDT Ultram PO 100 mg Q4H PRN Administration Severe Pain Trazodone HCl 150 mg 08/08/19 21:00 08/12/19 21:30 Desyrel PO 150 mg HS AAMIR Administration Venlafaxine HCl 150 mg 08/09/19 09:00 08/13/19 09:22 Effexor Xr PO 150 mg QAM AAMIR Administration Zolpidem Tartrate 5 mg 08/08/19 21:00 08/12/19 21:31 Ambien PO 5 mg HS AAMIR Administration - Exam General Appearance: awake alert Eye: PERRL ENT: moist mucosa Neck: supple, no thyromegaly, no lymphadenopathy Heart: RRR Respiratory: no wheezes, no rales Gastrointestinal: soft, non-tender Skin: no lesions Psychiatric: normal affect, normal behavior Hosp A/P (1) DM2 (diabetes mellitus, type 2) Status: Chronic Qualifiers: Chronic kidney disease stage: stage 2 (mild) (2) HLD (hyperlipidemia) Code(s): E78.5 - HYPERLIPIDEMIA, UNSPECIFIED Status: Chronic (3) Obesity (BMI 30.0-34.9) Code(s): E66.9 - OBESITY, UNSPECIFIED Status: Chronic - Plan continue accuchecks and insulin sliding scale. Continue statin. Pt awaiting SNU
[2019-08-13] MEDS: Zolpidem Tartrate 5 MG TAB PO SCH (21:24)
[2019-08-13] MEDS: traZODone HCl 150 MG TAB PO SCH (21:24)
[2019-08-14] MEDS: Acetaminophen/Codeine 30-300mg Tablet PO PRN ×3 (05:22→19:38)
--- NOTE | 2019-08-14 07:18 | PRG ---
DATE OF SERVICE: 08/14/2019 I saw Bonita Herndon this morning in her hospital room. Dr. Campa reported good progress over the weekend with ambulating in the hallway on Wednesday. Unfortunately, physical therapy did not make a bite yesterday to get her into the halls. I do not see a fever recorded in the last few days on our electronic vital signs chart. Her neurological examination is stable. Ms. Herndon is ready for transfer to inpatient rehabilitation. We will make sure she has no DVT before she transfers. Job ID: [id number] MTDD
[2019-08-14] MEDS: Atorvastatin Calcium 40 MG TAB PO SCH (08:29)
[2019-08-14] MEDS: Venlafaxine HCl XR 150 MG CAP PO SCH (08:30)
[2019-08-14] MEDS: metFORMIN 500 MG TAB PO SCH (08:31)
[2019-08-14] MEDS: Senokot S 8.6-50 MG TAB PO SCH ×2 (08:31→21:17)
--- NOTE | 2019-08-14 09:40 | ULT ---
EXAM: Bilateral lower extremity venous duplex: Deep veins evaluated with color Doppler, spectral analysis, and compression. INDICATIONS: Bilateral lower extremity pain and edema. FINDINGS: Deep veins interrogated include common femoral vein, femoral vein, popliteal vein, and post erior tibial vein. These veins show normal compression and blood flow. No evidence of DVT. IMPRESSION: Negative Bilateral venous duplex exam.
--- NOTE | 2019-08-14 14:02 | PDOC.HOSPP ---
- Subjective Encounter Date: 08/14/19 Encounter Time: 08:20 Subjective: Pt seen for followup re: DM2.Feels okay. - Objective Vital Signs & Weight: Vital Signs (12 hours) Temp Pulse Resp BP Pulse Ox 08/14/19 11:39 98.9 F 71 16 112/56 L 99 08/14/19 08:40 98 08/14/19 08:00 98.5 F 75 14 107/68 98 08/14/19 03:23 97.7 F 77 16 119/80 98 Weight Weight 202 lb I&O: 08/13/19 08/14/19 08/15/19 06:59 06:59 06:59 Intake Total 240 Output Total 1400 Balance -1160 Result Diagrams: 08/10/19 04:13 08/10/19 04:13 Additional Labs: Accuchecks 08/14/19 08/14/19 08/13/19 11:40 05:05 20:31 POC Glucose 134 H 94 120 H 08/13/19 16:12 POC Glucose 119 H labs and MARs reviewed by fl Hospitalist ROS - Review of Systems Cardiovascular: denies: chest pain, palpitations, orthopnea, paroxysmal noc. dyspnea, edema, light headedness Gastrointestinal: denies: nausea, vomiting, abdominal pain, diarrhea, constipation, melena, hematochezia - Medication Medications: Active Medications Generic Name Dose Route Start Last Admin Trade Name Freq PRN Reason Stop Dose Admin Acetaminophen/Codeine Phosphate 2 tab 08/08/19 14:21 08/14/19 11:44 Tylenol #3 PO 2 tab Q3H PRN Administration Moderate Pain (4-6) Atorvastatin Calcium 40 mg 08/09/19 09:00 08/14/19 08:29 Lipitor PO 40 mg QAM AAMIR Administration Bisacodyl 10 mg 08/08/19 14:21 08/13/19 21:25 Dulcolax CO 10 mg Q12H PRN Administration Constipation Insulin Human Lispro 0 units 08/09/19 14:18 08/10/19 17:29 Humalog SC 2 unit .MILD SLIDING SCALE PRN Administration Mild Correctional Scale Magnesium Hydroxide 30 ml 08/08/19 14:21 08/13/19 09:22 Milk Of Magnesium PO 30 ml Q12H PRN Administration Constipation Metformin HCl 500 mg 08/12/19 08:00 08/14/19 08:31 Glucophage PO 500 mg QAM-WM AAMIR Administration Morphine Sulfate 4 mg 08/08/19 14:21 08/10/19 05:15 Morphine SLOW IVP 4 mg Q1H PRN Administration Severe Breakthrough Pain Pantoprazole Sodium 40 mg 08/09/19 09:00 08/14/19 08:31 Protonix PO 40 mg DAILY AAMIR Administration Polyethylene Glycol 17 gm 08/10/19 18:34 08/12/19 21:38 Miralax PO 17 gm DAILY PRN Administration Constipation Quetiapine Fumarate 400 mg 08/08/19 21:00 08/13/19 21:25 Seroquel PO 400 mg HS AAMIR Administration Senna/Docusate Sodium 2 tab 08/10/19 21:00 08/14/19 08:31 Senokot S PO 2 tab BID AAMIR Administration Tramadol HCl 100 mg 08/09/19 08:14 08/13/19 01:56 CDT Ultram PO 100 mg Q4H PRN Administration Severe Pain Trazodone HCl 150 mg 08/08/19 21:00 08/13/19 21:24 Desyrel PO 150 mg HS AAMIR Administration Venlafaxine HCl 150 mg 08/09/19 09:00 08/14/19 08:30 Effexor Xr PO 150 mg QAM AAMIR Administration Zolpidem Tartrate 5 mg 08/08/19 21:00 08/13/19 21:24 Ambien PO 5 mg HS AAMIR Administration - Exam General - other findings: Obesity Eye: anicteric sclera ENT: moist mucosa Neck: supple, no JVD Heart: RRR, no rubs Respiratory: CTAB Gastrointestinal: soft, non-tender Psychiatric: normal affect, normal behavior Hosp A/P (1) DM2 (diabetes mellitus, type 2) Status: Chronic Qualifiers: Chronic kidney disease stage: stage 2 (mild) (2) HLD (hyperlipidemia) Code(s): E78.5 - HYPERLIPIDEMIA, UNSPECIFIED Status: Chronic (3) Obesity (BMI 30.0-34.9) Code(s): E66.9 - OBESITY, UNSPECIFIED Status: Chronic - Plan PT/OT, out of bed/ambulate Reasonable control of blood sugars. Continue accuchecks and insulin sliding scale. On statin. Pt awaiting SNU
[2019-08-14] MEDS: Zolpidem Tartrate 5 MG TAB PO SCH (21:17)
[2019-08-14] MEDS: traZODone HCl 150 MG TAB PO SCH (21:17)
[2019-08-15] MEDS: Acetaminophen/Codeine 30-300mg Tablet PO PRN ×3 (04:09→12:05)
--- NOTE | 2019-08-15 07:04 | PRG ---
DATE OF SERVICE: 08/15/2019 Ms. Herndon is a week out from decompression and fusion of lumbar spine. We are anticipating rehabilitation discharge when her insurance is an issue. Medicaid evidently is not going to cover that. Overnight, she has done well. Her vitals look stable. She has been walking in the hallways. She is going to discharge home and we will see her next week to check the wound. We will try to initiate physical therapy as an outpatient. Ultrasound of the legs was negative yesterday. Job ID: [id number]
[2019-08-15] MEDS: metFORMIN 500 MG TAB PO SCH (08:16)
[2019-08-15] MEDS: Venlafaxine HCl XR 150 MG CAP PO SCH (08:16)
[2019-08-15] MEDS: Senokot S 8.6-50 MG TAB PO SCH (08:17)
[2019-08-15] MEDS: Atorvastatin Calcium 40 MG TAB PO SCH (08:17)
[2019-08-15 15:45] VITALS: BP 110/69; TEMP 99
--- NOTE | 2019-08-16 23:13 | PQF ---
SCOTT ALCANTARA L GERARD MD [id number] [facility] A [id number] I HAVE BEEN INSTRUCTED MY ADMINISTRATION THAT I CANNOT MODIFY PART OF A MEDICAL RECORD, AND THAT THIS DOCUMENT CONSTITUTES PART OF SAID RECORD. THIS IGNORES THE ISSUE OF THE DOCUMENT BEING ATTRIBUTED TO ME, WHERE I WAS NOT THE AUTHOR OF IT. BELOW, THE DOCUMENT IS MARKED THOUGH IT WERE A DICTATION OF MINE, SUBSEQUENTLY TRANSCRIBED. THE TRUTH IS THAT IS WAS CREATED WITHOUT MY AUTHORSHIP, LIKELY BY: [email or web address], AND SENT TO ME FOR MY SIGNATURE. OUR EMR SYSTEM DOES NOT ALLOW FOR ME TO REFUSE TO SIGN THIS, BUT RATHER IT STAYS AN UNSIGNED DOCUMENT UNTIL MEDICAL RECORDS ALERTS ME OF DELINQUENCY. THEREFORE, IT HAS TO BE ADDRESSED. SEE MY RESPONSES BELOW. CLINICAL DOCUMENTATION CLARIFICATION FORM: POST DISCHARGE Addendum to original discharge summary date: ____ Late entry note date: __ THIS IS NOT AN ADDENDUM I AUTHORED. DATE: 08/16/19 ATTN: Luis Molina Please exercise your independent, professional judgment in responding to the clarification form. Clinical indicators are provided on the bottom of this form for your review Please check appropriate box(s): [ ] Acute Tubular Necrosis (ATN) [ ] Acute Renal Failure (ARF) / Acute Kidney Injury (CAL) [ ] Acute on Chronic Renal Failure please specify Stage of CKD (see below) [ ] CKD without ARF/CAL please specify Stage of CKD [ ] ESRD [ ] Other diagnosis [ XX ] Unable to determine HE DIAGNOSIS OF KIDNEY DYSFUNCTION DURING AN ADMISSION FOR SPINE SURGERY IS OUT OF MY REALM OF EXPERTISE. In addition, please specify: Present on Admission (POA): [ ] Yes [ ] No [ ] Unable to determine National Kidney Foundation Guidelines for CKD Staging Stage I Kidney damage with normal or increased GFRGFR > 90 Stage IIKidney damage with mildly decreased GFRGFR 60-89 Stage III Kidney damage with moderately decreased GFRGFR 30-59 Stage IVKidney damage with severely decreased GFRGFR 16-29 Stage VKidney failureGFR<15 ESRDEnd Stage Renal DiseaseOn dialysis Acute Renal Failure/Acute Kidney Failure defined as: Increases in SCr by (>) 0.3 mg/dl within 48 hours OR- Increases in SCr by (>) 1.5 times baseline, known or presumed to have occurred within the prior 7 days OR- Urine volume < 0.5 ml/kg/hour for 6 hours (KDIGO supplement 2012 for RIFLE/DASHAWN criteria) For continuity of documentation, please document condition throughout progress notes and discharge summary. Thank You. CLINICAL INDICATORS - SIGNS / SYMPTOMS / LABS Consult p1 08/09 The patient states that she is doing well in regard to pain and has some numbness in the bilateral thighs Consult p2 08/09 Blood pressure 100/60 however more recently this was repeated and was 87/52 Consult p3 08/09 Laboratory data : BUN 19, Creatinine 2.09, GFR 30 Consult p3 08/09- hypotension possibly combination of pain medication and dehydration RISK FACTORS Consult p3 08/09- 59 year-old woman Consult p3 08/09- Diabetes Mellitus Consult p3 08/09- Acute Kidney Injury Hospitalist PN p5 08/14 DM with CKD 2 TREATMENTS: MAR 08/09 IV fluid Bolus 250ml MAR 08/09 Normal saline at 100ml'h Consult p3 08/09- Monitor blood pressure Consult p3 08/09- Monitor blood glucose (This form is maintained as a part of the permanent medical record) 2014 [employer]. All Rights Reserved [email or web address] [not provided] MTDD
== END 2019-08-15 15:43 | disposition home or self-care (01) | DRG 454 ==
LOC: SURG A 05:50
PROVIDERS: ADMIT Neurological Surgery; ATTEND Neurological Surgery
PROC: 0SG00AJ Fusion of Lumbar Vertebral Joint with Interbody Fusion Device, Posterior Approach, Anterior Column, Open Approach (ICD-10-PCS; principal; 2019-08-08)
PROC: 0SG0071 Fusion of Lumbar Vertebral Joint with Autologous Tissue Substitute, Posterior Approach, Posterior Column, Open Approach (ICD-10-PCS; 2019-08-08)
PROC: 0SB20ZZ Excision of Lumbar Vertebral Disc, Open Approach (ICD-10-PCS; 2019-08-08)
PROC: 01NB0ZZ Release Lumbar Nerve, Open Approach (ICD-10-PCS; 2019-08-08)
PROC: 01NR0ZZ Release Sacral Nerve, Open Approach (ICD-10-PCS; 2019-08-08)
PROC: 30233N1 Transfusion of Nonautologous Red Blood Cells into Peripheral Vein, Percutaneous Approach (ICD-10-PCS; 2019-08-10)
DX: M48.062 Spinal stenosis, lumbar region with neurogenic claudication (principal); N17.9 Acute kidney failure, unspecified; M43.16 Spondylolisthesis, lumbar region; M43.17 Spondylolisthesis, lumbosacral region; M48.07 Spinal stenosis, lumbosacral region; F25.9 Schizoaffective disorder, unspecified; K21.9 Gastro-esophageal reflux disease without esophagitis; F41.9 Anxiety disorder, unspecified; F32.9 Major depressive disorder, single episode, unspecified; E78.5 Hyperlipidemia, unspecified; E66.9 Obesity, unspecified; E11.22 Type 2 diabetes mellitus with diabetic chronic kidney disease; N18.2 Chronic kidney disease, stage 2 (mild); I95.9 Hypotension, unspecified; E86.0 Dehydration; Z85.048 Personal history of other malignant neoplasm of rectum, rectosigmoid junction, and anus; Z90.49 Acquired absence of other specified parts of digestive tract; Z68.33 Body mass index [BMI] 33.0-33.9, adult; Z79.899 Other long term (current) drug therapy; Z79.84 Long term (current) use of oral hypoglycemic drugs
CPT/HCPCS: 36415; 36416; 36430; 72100; 72131; 76000; 80048; 83880; 85025; 85027; 85610; 85730; 86850; 86900; 86901; 93970; C1713; C1768; J0131; J0670; J0690; J1200; J1885; J2001; J2250; J2270; J2370; J2405; J2704; J3010; J3370; J3490; P9016